=== PATIENT | female | born 1965 | race Caucasian/White ===

== ENCOUNTER 2017-09-06 07:38 | Inpatient (IN) | payer BC ==
[~2017-09-06] VITALS: Ht 162.6 cm; Wt 68.0 kg
[2017-09-06 07:42] VITALS: BP_SYST 154
[2017-09-06 08:33] LABS: BILIRUBIN,URINE NEGATIVE (NEGATIVE); BLOOD, URINE 3+ (NEGATIVE); CLARITY/URINE HAZY (CLEAR); COLOR,URINE YELLOW (YELLOW); GLUCOSE,URINE NEGATIVE (NEGATIVE); KETONES,URINE TRACE (NEGATIVE); LEUKOCYTE ESTERASE ,URINE TRACE (NEGATIVE); NITRITE, URINE NEGATIVE (NEGATIVE); PROTEIN URINE NEGATIVE (NEGATIVE)
[2017-09-06 08:45] LABS: BACTERIA,URINE MODERATE /HPF (None Seen)
[2017-09-06 08:49] LABS: BASOPHILS # (AUTO) 0.1 K/uL (0.0-0.2); BASOPHILS % (AUTO) 0.9 % (0.0-2.0); EOSINOPHILS # (AUTO) 0.1 K/uL (0.0-0.4); EOSINOPHILS % (AUTO) 0.8 % (0.0-4.0); HEMATOCRIT 38.7 % (36-48); LYMPHOCYTES % (AUTO) 13.7 % (20.5-51.5); MEAN CORPUSCULAR HEMOGLOBIN 30 pg (27-31); MEAN CORPUSCULAR HGB CONC 34 % (32-36); MEAN CORPUSCULAR VOLUME 90 fL (79.0-98.0); MONOCYTES # (AUTO) 0.5 K/uL (0.0-1.0); NEUTROPHILS # (AUTO) 5.5 K/uL (1.8-7.7); NEUTROPHILS % (AUTO) 77.6 % (40.0-70.0); PLATELET COUNT (AUTO) 172 K/uL (130-430); RED BLOOD CELL COUNT(AUTO) 4.29 MIL/uL (4.2-6.2); RED CELL DISTRIBUTION WIDTH 12.1 % (9.0-15.0); WHITE BLOOD COUNT (AUTO) 7.2 K/uL (4.8-10.8)
[2017-09-06 09:01] LABS: CALCIUM 9.7 mg/dL (8.4-11.0); CREATININE 0.78 mg/dL (0.55-1.30); POTASSIUM 3.7 mmol/L (3.5-5.1)
[2017-09-06] MEDS ORDERED: NACL 0.9% 1,000 ML IV ONE (09:01)
[2017-09-06 09:06] LABS: ALBUMIN 3.4 g/dL (3.4-4.8); TOTAL BILIRUBIN 0.7 mg/dL (0.0-1.0)
[2017-09-06] MEDS ORDERED: LIP10 PO (09:20)
[2017-09-06] MEDS ORDERED: metroNIDAZOLE 500 mg/NS 100 ML IV ONE ×2 (09:45→18:39)
[2017-09-06] MEDS ORDERED: KETOROLAC TROMETHAMINE 30 MG VIAL IVP ONE ×3 (10:15→21:45)
[2017-09-06] MEDS ORDERED: ONDANSETRON HCL 4 MG/2 ML VIAL IVP ONE ×3 (10:15→21:45)
[2017-09-06 10:52] VITALS: BP_SYST 144
[2017-09-06 12:26] LABS: INR 1.1 (0.8-1.2); PROTHROMBIN TIME 11.2 SECS (9.5-12.5)
[2017-09-06 13:00] VITALS: BP_SYST 127
[2017-09-06] MEDS ORDERED: ROCURONIUM BROMIDE 10 MG/ML (ZEMURON) IV ONE (16:58)
[2017-09-06] MEDS ORDERED: PROPOFOL 200MG/ 20ML VIAL (DIPRIVAN) IV ONE (16:58)
[2017-09-06] MEDS ORDERED: fentaNYL CITRATE/PF 100 MCG/2 ML AMP IVP ONE (16:58)
[2017-09-06] MEDS ORDERED: NS IRRIG SOLN 1000 ML IR ONE (16:58)
[2017-09-06] MEDS ORDERED: SEVOFLURANE 15 MIN GAS INH ONE (16:58)
[2017-09-06] MEDS ORDERED: PIPERACILLIN/TAZOBACTAM 3.375 GM/VIAL (ZOSYN) IV ONE ×2 (16:58→18:39)
[2017-09-06] MEDS ORDERED: MIDAZOLAM HCL 5 MG/ML VIAL (VERSED) IV ONE (16:58)
[2017-09-06] MEDS ORDERED: LR 1,000 ML IV.SOLN IV ONE (16:58)
[2017-09-06] MEDS ORDERED: LR 1,000 ML IV SCH (17:19)
[2017-09-06 17:26] VITALS: BP_SYST 127
[2017-09-06] MEDS ORDERED: KETOROLAC TROMETHAMINE 30 MG VIAL IVP PRN (17:30)
[2017-09-06] MEDS ORDERED: MEPERIDINE HCL/PF 25 MG/ML DISP.SYRIN IVP PRN ×2 (17:30)
[2017-09-06] MEDS ORDERED: ONDANSETRON HCL 4 MG/2 ML VIAL IVP PRN (17:30)
[2017-09-06] MEDS ORDERED: MEPERIDINE HCL/PF 25 MG/ML DISP.SYRIN ONE (19:44)
[2017-09-06] MEDS ORDERED: CIPROFLOXACIN LACT 400 MG/D5W 200 ML IV SCH (21:00)
[2017-09-06 21:15] VITALS: BP_SYST 130
[2017-09-06] MEDS ORDERED: CIPROFLOXACIN LACT 400 MG/D5W 200 ML IV ONE (21:15)
[2017-09-06] MEDS: LR 1,000 ML IV SCH (22:49)
[2017-09-06] MEDS ORDERED: HYDROmorphone 2 MG/ML VIAL IVP PRN ×2 (23:45)
[2017-09-07] VITALS (7 sets, daily range): BP systolic 114–126
[2017-09-07] MEDS ORDERED: BISACODYL 10 MG/SUPPOSITORY RC PRN (00:15)
[2017-09-07] MEDS: KETOROLAC TROMETHAMINE 30 MG VIAL IVP SCH ×4 (05:14→23:57)
[2017-09-07 07:12] LABS: BASOPHILS % (AUTO) 0.1 % (0.0-2.0); HEMATOCRIT 37.7 % (36-48); HEMOGLOBIN 12.7 g/dL (12.0-16.0); LYMPHOCYTES # (AUTO) 0.5 K/uL (1.0-5.5); MEAN CORPUSCULAR HEMOGLOBIN 31 pg (27-31); MEAN CORPUSCULAR HGB CONC 34 % (32-36); MEAN CORPUSCULAR VOLUME 91 fL (79.0-98.0); MONOCYTES # (AUTO) 0.4 K/uL (0.0-1.0); MONOCYTES % (AUTO) 3.4 % (1.7-9.3); NEUTROPHILS # (AUTO) 11.4 K/uL (1.8-7.7); PLATELET COUNT (AUTO) 197 K/uL (130-430); RED BLOOD CELL COUNT(AUTO) 4.14 MIL/uL (4.2-6.2); RED CELL DISTRIBUTION WIDTH 11.9 % (9.0-15.0); WHITE BLOOD COUNT (AUTO) 12.3 K/uL (4.8-10.8)
[2017-09-07 07:48] LABS: ALBUMIN 3.5 g/dL (3.4-4.8); CALCIUM 9.7 mg/dL (8.4-11.0); CREATININE 0.8 mg/dL (0.55-1.30); POTASSIUM 3.9 mmol/L (3.5-5.1); TOTAL BILIRUBIN 0.8 mg/dL (0.0-1.0)
[2017-09-07] MEDS: LR 1,000 ML IV SCH ×2 (08:14→18:09)
[2017-09-07] MEDS: PIPERACILLIN/TAZO 3.375/DEX-IS 50 ML IV SCH ×3 (11:28→23:58)
[2017-09-07] MEDS: ONDANSETRON HCL 4 MG/2 ML VIAL IVP PRN ×3 (11:34→18:10)
[2017-09-07 11:45] LABS: NEUTROPHILS % (AUTO) 92.5 % (40.0-70.0)
[2017-09-07] MEDS: metroNIDAZOLE 500 mg/NS 100 ML IV SCH ×2 (14:39→21:18)
[2017-09-08 00:24] VITALS: BP_SYST 129
[2017-09-08 04:37] VITALS: BP_SYST 117
[2017-09-08] MEDS: LR 1,000 ML IV SCH ×3 (04:55→23:13)
[2017-09-08] MEDS: PIPERACILLIN/TAZO 3.375/DEX-IS 50 ML IV SCH ×4 (05:56→23:12)
[2017-09-08] MEDS: KETOROLAC TROMETHAMINE 30 MG VIAL IVP SCH ×4 (05:57→23:12)
[2017-09-08] MEDS: metroNIDAZOLE 500 mg/NS 100 ML IV SCH ×3 (05:57→22:22)
[2017-09-08 07:19] LABS: BASOPHILS % (AUTO) 0.3 % (0.0-2.0); EOSINOPHILS % (AUTO) 0.2 % (0.0-4.0); HEMATOCRIT 35.5 % (36-48); HEMOGLOBIN 12.1 g/dL (12.0-16.0); LYMPHOCYTES # (AUTO) 1.5 K/uL (1.0-5.5); LYMPHOCYTES % (AUTO) 12.9 % (20.5-51.5); MEAN CORPUSCULAR HEMOGLOBIN 31 pg (27-31); MEAN CORPUSCULAR HGB CONC 34 % (32-36); MEAN CORPUSCULAR VOLUME 92 fL (79.0-98.0); MONOCYTES # (AUTO) 0.6 K/uL (0.0-1.0); MONOCYTES % (AUTO) 5.4 % (1.7-9.3); NEUTROPHILS # (AUTO) 9.5 K/uL (1.8-7.7); PLATELET COUNT (AUTO) 192 K/uL (130-430); RED BLOOD CELL COUNT(AUTO) 3.86 MIL/uL (4.2-6.2); RED CELL DISTRIBUTION WIDTH 11.9 % (9.0-15.0); WHITE BLOOD COUNT (AUTO) 11.6 K/uL (4.8-10.8)
[2017-09-08 07:35] VITALS: BP_SYST 125
[2017-09-08 08:06] LABS: ALBUMIN 3.3 g/dL (3.4-4.8); CALCIUM 9.3 mg/dL (8.4-11.0); CREATININE 0.72 mg/dL (0.55-1.30); POTASSIUM 3.8 mmol/L (3.5-5.1); TOTAL BILIRUBIN 0.7 mg/dL (0.0-1.0)
[2017-09-08 10:48] LABS: NEUTROPHILS % (AUTO) 81.2 % (40.0-70.0)
[2017-09-08 11:31] VITALS: BP_SYST 134
[2017-09-08] MEDS ORDERED: LORazepam 2 MG/ML VIAL IVP PRN (11:45)
[2017-09-08] MEDS ORDERED: ENOXAPARIN SODIUM 40 MG/0.4 ML SYRINGE SUBCUT ONE (13:45)
[2017-09-08 15:23] VITALS: BP_SYST 119
[2017-09-08 19:57] VITALS: BP_SYST 121
[2017-09-09 00:26] VITALS: BP_SYST 129
[2017-09-09 04:37] VITALS: BP_SYST 121
[2017-09-09] MEDS: metroNIDAZOLE 500 mg/NS 100 ML IV SCH (05:06)
[2017-09-09] MEDS: PIPERACILLIN/TAZO 3.375/DEX-IS 50 ML IV SCH ×2 (05:07→12:19)
[2017-09-09] MEDS: KETOROLAC TROMETHAMINE 30 MG VIAL IVP SCH ×2 (05:07→12:17)
[2017-09-09 07:05] LABS: BASOPHILS # (AUTO) 0.1 K/uL (0.0-0.2); BASOPHILS % (AUTO) 0.7 % (0.0-2.0); EOSINOPHILS # (AUTO) 0.1 K/uL (0.0-0.4); EOSINOPHILS % (AUTO) 1.2 % (0.0-4.0); HEMATOCRIT 31.9 % (36-48); HEMOGLOBIN 10.7 g/dL (12.0-16.0); LYMPHOCYTES # (AUTO) 1.3 K/uL (1.0-5.5); LYMPHOCYTES % (AUTO) 14.9 % (20.5-51.5); MEAN CORPUSCULAR HEMOGLOBIN 31 pg (27-31); MEAN CORPUSCULAR HGB CONC 34 % (32-36); MEAN CORPUSCULAR VOLUME 91 fL (79.0-98.0); MONOCYTES # (AUTO) 0.6 K/uL (0.0-1.0); MONOCYTES % (AUTO) 6.6 % (1.7-9.3); NEUTROPHILS % (AUTO) 76.6 % (40.0-70.0); PLATELET COUNT (AUTO) 188 K/uL (130-430); RED BLOOD CELL COUNT(AUTO) 3.51 MIL/uL (4.2-6.2); RED CELL DISTRIBUTION WIDTH 12.1 % (9.0-15.0); WHITE BLOOD COUNT (AUTO) 9.1 K/uL (4.8-10.8)
[2017-09-09 07:35] VITALS: BP_SYST 124
[2017-09-09] MEDS: LR 1,000 ML IV SCH (08:40)
[2017-09-09] MEDS ORDERED: ENOXAPARIN SODIUM 40 MG/0.4 ML SYRINGE SUBCUT SCH (09:00)
[2017-09-09 12:51] VITALS: BP_SYST 134
[2017-09-09 13:13] VITALS: BP_SYST 134
== END 2017-09-09 14:26 | disposition home or self-care (01) | DRG 330 ==
LOC: SED 07:38 → SMU 10:27
PROVIDERS: ADMIT Specialist; ATTEND Specialist
PROC: 0WQF0ZZ Repair Abdominal Wall, Open Approach (ICD-10-PCS; 2017-09-06 15:15)
PROC: 0DTH0ZZ Resection of Cecum, Open Approach (ICD-10-PCS; principal; 2017-09-08)
DX: K63.89 Other specified diseases of intestine (principal); N30.01 Acute cystitis with hematuria; E78.5 Hyperlipidemia, unspecified; K42.9 Umbilical hernia without obstruction or gangrene; Z88.2 Allergy status to sulfonamides; Z88.8 Allergy status to other drugs, medicaments and biological substances; Z90.710 Acquired absence of both cervix and uterus; Z88.1 Allergy status to other antibiotic agents; Z85.3 Personal history of malignant neoplasm of breast; K57.90 Diverticulosis of intestine, part unspecified, without perforation or abscess without bleeding
CPT/HCPCS: 36415; 71010; 80053; 81000-TC; 83605; 83690-TC; 85025; 85610-TC; 87040-TC; 87081; 88305; 88307; 93005; 94010; 96361; 96365; 96375; 99285; C1727; J0744; J1170; J1650; J1885; J2060; J2175; J2250; J2405; J2543; J2704; J3010; J3490; J7030; J7042; J7120

== ENCOUNTER 2018-01-08 08:06 | Day surgery (SDC) | payer BC ==
[~2018-01-08] VITALS: Ht 162.6 cm; Wt 66.2 kg
[~2018-01-08 08:06] MED LIST: LIP10 PO
[2018-01-08] MEDS ORDERED: CLINDAMYCIN 600 mg/50mL D5W 50 ML IV ONE (10:56)
[2018-01-08] MEDS ORDERED: fentaNYL CITRATE/PF 100 MCG/2 ML AMP IVP PRN ×2 (12:30)
[2018-01-08] MEDS ORDERED: ONDANSETRON HCL 4 MG/2 ML VIAL IVP PRN ×2 (12:30→13:30)
[2018-01-08] MEDS ORDERED: MEPERIDINE HCL/PF 100 MG/ML AMP IM ONE (13:15)
[2018-01-08] MEDS ORDERED: NS IRRIG SOLN 1000 ML IR ONE (13:15)
[2018-01-08] MEDS ORDERED: ROCURONIUM BROMIDE 10 MG/ML (ZEMURON) IV ONE (13:15)
[2018-01-08] MEDS ORDERED: GLYCOPYRROLATE 0.2 MG/ML VIAL IJ ONE (13:15)
[2018-01-08] MEDS ORDERED: LR 1,000 ML IV.SOLN IV ONE (13:15)
[2018-01-08] MEDS ORDERED: EPINEPHrine 1 MG/ML AMP IV ONE (13:15)
[2018-01-08] MEDS ORDERED: SEVOFLURANE 15 MIN GAS INH ONE (13:15)
[2018-01-08] MEDS ORDERED: MIDAZOLAM HCL 5 MG/ML VIAL (VERSED) IV ONE (13:15)
[2018-01-08] MEDS ORDERED: PROPOFOL 200MG/ 20ML VIAL (DIPRIVAN) IV ONE (13:15)
[2018-01-08] MEDS ORDERED: BUPIVACAINE /PF 0.5% 30 ML VIAL INJ ONE (13:15)
[2018-01-08] MEDS ORDERED: NS 1000 ML BAG IV ONE (13:15)
[2018-01-08] MEDS ORDERED: ONDANSETRON HCL 4 MG/2 ML VIAL IVP ONE (13:15)
[2018-01-08] MEDS ORDERED: DEXAMETHASONE SOD PHOSPHATE 4 MG/ML VIAL IVP ONE (13:15)
[2018-01-08] MEDS ORDERED: OXYCODONE/ACETAMINOPHEN 5-325 TABLET PO PRN ×2 (13:30)
[2018-01-08] MEDS ORDERED: OXYCODONE/ACETAMINOPHEN 5-325 TABLET ONE (14:14)
[2018-01-08] MEDS ORDERED: traMADol HCL HCL 50 MG TABLET (ULTRAM) ONE (14:29)
[2018-01-08] MEDS ORDERED: traMADol HCL HCL 50 MG TABLET (ULTRAM) PO ONE (14:30)
[2018-01-08 15:22] VITALS: BP_SYST 120
== END 2018-01-08 16:35 | disposition home or self-care (01) ==
LOC: SMU 08:06 → SDS 08:06
PROVIDERS: ATTEND Specialist
DX: N80.1 Endometriosis of ovary (principal); E78.00 Pure hypercholesterolemia, unspecified; Z88.8 Allergy status to other drugs, medicaments and biological substances; Z79.899 Other long term (current) drug therapy; Z98.890 Other specified postprocedural states; Z85.038 Personal history of other malignant neoplasm of large intestine
CPT/HCPCS: 58662; 88305; 93005; C1727; J0171; J1100; J2175; J2250; J2405; J2704; J3490 ×3; J7030; J7120; E0190

== ENCOUNTER 2018-11-26 05:55 | Inpatient (IN) | payer BC ==
[~2018-11-26] VITALS: Ht 162.6 cm; Wt 68.0 kg
[2018-11-26] MEDS ORDERED: NS 1000 ML IV.SOLN IV ONE (07:10)
[2018-11-26] MEDS ORDERED: ROPIVACAINE 0.2% (NAROPIN) PF SOLUTION 100 ML BOTTLE EP ONE (07:10)
[2018-11-26] MEDS ORDERED: ROPIVACAINE HCL/PF 5 MG/ML 0.5% 30 ML VIAL INJ ONE (07:10)
[2018-11-26] MEDS ORDERED: SEVOFLURANE 15 MIN GAS INH ONE (07:10)
[2018-11-26] MEDS ORDERED: BUPIVACAINE /PF 0.25% 30 ML VIAL INJ ONE (07:10)
[2018-11-26] MEDS ORDERED: MIDAZOLAM HCL 5 MG/5 ML VIAL IVP ONE (07:10)
[2018-11-26] MEDS ORDERED: PROPOFOL 200MG/ 20ML VIAL (DIPRIVAN) IV ONE (07:10)
[2018-11-26] MEDS ORDERED: CEFAZOLIN 1 GM IVPB PREMIX 50 ML IV ONE (07:10)
[2018-11-26] MEDS ORDERED: ONDANSETRON HCL 4 MG/2 ML VIAL IVP ONE (07:10)
[2018-11-26] MEDS ORDERED: ROCURONIUM BROMIDE 10 MG/ML (ZEMURON) IV ONE (07:10)
[2018-11-26] MEDS ORDERED: fentaNYL CITRATE 250 MCG/5 ML AMP IV ONE (07:10)
[2018-11-26] MEDS ORDERED: CLINDAMYCIN 2% VAGINAL CREAM VG ONE (07:10)
[2018-11-26] MEDS ORDERED: LR 1,000 ML IV.SOLN IV ONE (07:10)
[2018-11-26] MEDS ORDERED: NS IRRIG SOLN 1000 ML IR ONE (07:10)
[2018-11-26] MEDS ORDERED: DEXTROSE 50% JECT 50 ML DISP.SYRIN IVP ONE (07:10)
[2018-11-26 07:17] LABS: POTASSIUM 3.9 mmol/L (3.5-5.1)
[2018-11-26 07:18] LABS: CALCIUM 8.7 mg/dL (8.4-11.0); CREATININE 0.72 mg/dL (0.55-1.30)
[2018-11-26 07:20] LABS: ALBUMIN 3.4 g/dL (3.4-4.8); TOTAL BILIRUBIN 0.5 mg/dL (0.0-1.0)
[2018-11-26] MEDS ORDERED: POLYMYXIN 500,000/BACIT.10,000 UNITS in NS IRR 1 L IR ONE ×2 (07:21→08:45)
[2018-11-26 07:32] LABS: PROTHROMBIN TIME 9.7 SECS (9.5-12.5)
[2018-11-26 07:33] LABS: INR 0.9 (0.8-1.2)
[2018-11-26] MEDS ORDERED: LR 1,000 ML IV SCH (09:08)
[2018-11-26] MEDS ORDERED: HYDROmorphone 1 MG INJ. 1 MG/ML AMPUL IVP PRN ×2 (09:15)
[2018-11-26] MEDS ORDERED: METOCLOPRAMIDE HCL 10 MG/2 ML VIAL IVP PRN (09:15)
[2018-11-26] MEDS ORDERED: HYDROmorphone 2 MG/ML VIAL IVP PRN (09:15)
[2018-11-26 12:03] VITALS: BP_SYST 137
[2018-11-26 12:04] VITALS: BP_SYST 118
--- NOTE | 2018-11-26 12:05 | NUR ---
RN NOTES:RECEIVED PATIENT FROM PACU DROWSY BUT EASILY AROUSABLE, RESPONSIVE AND NOT IN DISTRESS. NOT IN PAIN. NO ACTIVE BLEEDING NOTED BUT PATIENT HAS 2 SARAH DRAINS, ONE ON EACH SIDE OF THE ABDOMEN. ON Q PUMP, PATIENT TOLERATING PAIN WELL. INCISION COVERED WITH DRESSING WITH ABDOMINAL BINDER . CAMPBELL CATHETER IN PLACED, DRAINING WELL. VITAL SIGNS TAKEN. KEPT COMFORTABLE. STABLE. FAMILY AT BEDSIDE.
--- NOTE | 2018-11-26 12:29 | NUR ---
received report from transmitter engineer in charge. pt is drowsy but arousable to voice, noted pt was sharking her body and head, pt was already covered with blanket. per report md is already aware of the shaking. no bleeding noted from dressing, 2x deb intact with very little drainage. qpump connected. family at bedside. call light in reach. will cont to monitor.
[2018-11-26] MEDS ORDERED: D5/0.45 NS 1,000 ML IV SCH (13:26)
[2018-11-26] MEDS: ONDANSETRON HCL 4 MG/2 ML VIAL IVP PRN ×2 (13:55→19:24)
[2018-11-26] MEDS: KETOROLAC TROMETHAMINE 30 MG VIAL IVP PRN ×2 (13:58→21:48)
[2018-11-26] MEDS ORDERED: ACETAMINOPHEN 325 MG TABLET PO PRN (14:45)
--- NOTE | 2018-11-26 15:00 | NUR ---
pt in bed, at bedside. pt stated her pain in better this time. will little nausea now. call light in reach. will cont to monitor.
[2018-11-26] MEDS: CEFAZOLIN 1 GM IVPB PREMIX 50 ML IV SCH ×2 (16:28→23:48)
[2018-11-26] MEDS: LR 1,000 ML IV SCH ×2 (16:29→22:40)
--- NOTE | 2018-11-26 16:49 | NUR ---
LEFT AND RIGHT SARAH DRAINED 20 AND 60 CC OF LIGHT RED DRAINAGE RESPECTIVELY.
--- NOTE | 2018-11-26 17:11 | NUR ---
PT OOB WITH ASSIST STOOD ON SIDE OF BED FOR 2-3 MIN, C/O OF NAUSEA. ASSISTED BACK TO BED. AT BEDSIDE. PT TOLERATED WELL.
[2018-11-26 17:24] VITALS: BP_SYST 124
[2018-11-26] MEDS: KETOROLAC TROMETHAMINE 30 MG VIAL IVP SCH (17:48)
--- NOTE | 2018-11-26 17:51 | NUR ---
PT GIVEN SCHEDULED TORADOL. PT C/O OF PAIN 05/27. WILL CONT TO MONITOR. CALLED [facility] FOR DINNER TRAY OF CLEAR LIQUID.
--- NOTE | 2018-11-26 18:34 | NUR ---
CLOSING NOTE, PT HAS BEEN STABLE. C/O OF PAIN EVEN WITH THE QPUMP. GIVEN TORADOL 2X THIS SHIFT. PT OOB X1 THIS SHIFT. IV FLUIDS INFUSING WELL. IV ABX GIVEN. WILL ENDORSE TO NIGHT RN.
[2018-11-26 19:00] VITALS: BP_SYST 120
[2018-11-26 20:00] VITALS: BP_SYST 120
[2018-11-26] MEDS ORDERED: SENNOSIDES/DOCUSATE SODIUM 1 TAB TABLET(SENOKOT-S) PO PRN (21:00)
[2018-11-26] MEDS: SIMETHICONE 80 MG TAB.CHEW PO PRN (23:01)
--- NOTE | 2018-11-26 23:13 | NUR ---
paged paged for Dr Galan, dialed . s/w Tawnya.
[2018-11-26 23:46] VITALS: BP_SYST 123
[2018-11-27] MEDS: KETOROLAC TROMETHAMINE 30 MG VIAL IVP SCH ×4 (00:27→18:32)
[2018-11-27] MEDS: LR 1,000 ML IV SCH ×3 (00:31→16:22)
[2018-11-27] MEDS: TEMAZEPAM 15 MG CAPSULE PO PRN ×2 (00:33→21:09)
[2018-11-27] MEDS: KETOROLAC TROMETHAMINE 30 MG VIAL IVP PRN ×2 (04:02→10:45)
--- NOTE | 2018-11-27 06:58 | NUR ---
ATTENDING MD DR Jaqui MAYA WAS CALLED, RE: PT REMOVED VAGINAL PACKING THAT CAUSE BLEEDING. SPOKE TO MEY
[2018-11-27 07:31] LABS: HEMOGLOBIN 11.1 g/dL (12.0-16.0); RED BLOOD CELL COUNT(AUTO) 3.69 MIL/uL (4.2-6.2); WHITE BLOOD COUNT (AUTO) 9.2 K/uL (4.8-10.8)
[2018-11-27 07:32] LABS: BASOPHILS % (AUTO) 0.5 % (0.0-2.0); EOSINOPHILS # (AUTO) 0.1 K/uL (0.0-0.4); EOSINOPHILS % (AUTO) 0.9 % (0.0-4.0); HEMATOCRIT 33.4 % (36-48); LYMPHOCYTES # (AUTO) 1.5 K/uL (1.0-5.5); LYMPHOCYTES % (AUTO) 15.8 % (20.5-51.5); MEAN CORPUSCULAR HEMOGLOBIN 30 pg (27-31); MEAN CORPUSCULAR HGB CONC 33 % (32-36); MEAN CORPUSCULAR VOLUME 91 fL (79.0-98.0); MONOCYTES # (AUTO) 0.8 K/uL (0.0-1.0); MONOCYTES % (AUTO) 8.4 % (1.7-9.3); NEUTROPHILS # (AUTO) 6.8 K/uL (1.8-7.7); NEUTROPHILS % (AUTO) 74.4 % (40.0-70.0); PLATELET COUNT (AUTO) 148 K/uL (130-430); RED CELL DISTRIBUTION WIDTH 12.4 % (9.0-15.0)
[2018-11-27 08:00] VITALS: BP_SYST 130
--- NOTE | 2018-11-27 08:00 | NUR ---
Opening Note Report received from Yaw TOVAR shift nurse. Patient is awake and alert. Abdominal incision is dry and intact, covered with surgical dressing and abdominal binder in place. Right and left SARAH drains are in place, draining sanguinous fluid. On q pump is running at 5ml. IV is on the left wrist 20g running LR @125. Lr cath was dc'd today at 0630. Patient voided 200ml already.
[2018-11-27 08:09] LABS: CALCIUM 8.7 mg/dL (8.4-11.0); POTASSIUM 3.8 mmol/L (3.5-5.1)
[2018-11-27 08:10] LABS: ALBUMIN 2.9 g/dL (3.4-4.8); CREATININE 0.69 mg/dL (0.55-1.30); TOTAL BILIRUBIN 0.7 mg/dL (0.0-1.0)
[2018-11-27] MEDS: ONDANSETRON HCL 4 MG/2 ML VIAL IVP PRN (08:48)
[2018-11-27] MEDS: traMADol HCL HCL 50 MG TABLET (ULTRAM) PO PRN ×2 (08:48→16:33)
--- NOTE | 2018-11-27 10:20 | NUR ---
Rounds Patient is resting in bed. Call light is within reach.
--- NOTE | 2018-11-27 11:13 | NUR ---
Nutrition Update Oleg Scale 17 noted. Pt admitted for stress incontinence (female) (male). Diet: clear liquid BMI: 25.7 kg/m2 RD to follow per nutrition care standards.
[2018-11-27 12:10] VITALS: BP_SYST 137
--- NOTE | 2018-11-27 12:30 | NUR ---
Rounds Checked abdominal site. Original surgical dressing is in place. Moderate amount of old dry drainage noted underneath the dressing.
[2018-11-27] MEDS: SIMETHICONE 80 MG TAB.CHEW PO PRN (12:39)
--- NOTE | 2018-11-27 15:40 | NUR ---
Spoke with MD Spoke with Dr. Rain who stated that he will come and see the patient if not discharged by Dr. Galan.
--- NOTE | 2018-11-27 15:50 | NUR ---
Spoke with MD Spoke with Dr. Galan who stated that he will come and see the patient.
--- NOTE | 2018-11-27 16:20 | NUR ---
Rounds Patient is resting in bed. Family is at the bedside. Call light is within reach.
[2018-11-27 16:46] VITALS: BP_SYST 133
--- NOTE | 2018-11-27 18:17 | NUR ---
Closing Note Patient is currently resting in bed. Abdominal dressing and binder are in place. Right and left SARAH drains are in place along with On Q pump running at 5ml. IV is on the left wrist 22g running LR@125. Call light is within reach and bed is in low position. Will endorse care to the oncoming nurse.
--- NOTE | 2018-11-27 19:30 | NUR ---
opening note Received patient AAOX4, she is resting supine in no sign of distress. She was medicated for pain approximately one hour ago and presently she reports she is comfortable. 22G IV to L hand has fluids infusing as ordered. Abdominal binder CDI. Two SARAH's are present, one on right and one on left. on-Q pump; 2 noted each at 5 ml/hr, patent. Bed is locked to lowest position, bed alarm on and instructed on use of call light. Will monitor.
[2018-11-27 19:40] VITALS: BP_SYST 141
--- NOTE | 2018-11-27 19:50 | NUR ---
Dr. Pruitt making rounds Dr. Pruitt is at the unit and went to see the patient.
--- NOTE | 2018-11-27 23:30 | NUR ---
Incentive spirometer Patient was educated on use of incentive spirometer. She demonstrated use and inspired 800ml. Patient declined PO pain medication and said she will wait for her scheduled IVP pain medication. No further needs. Will monitor.
[2018-11-28] VITALS (7 sets, daily range): BP systolic 120–161
[2018-11-28] MEDS: KETOROLAC TROMETHAMINE 30 MG VIAL IVP SCH ×4 (00:19→18:10)
--- NOTE | 2018-11-28 00:20 | NUR ---
NOTE Administered due pain medication. She reports pain is 7-8/10 and overall today more tolerable than yesterday. She ambulated to the restroom and returned to bed. Safety precautions in place and call light near.
[2018-11-28] MEDS: LR 1,000 ML IV SCH ×2 (00:21→12:30)
--- NOTE | 2018-11-28 06:10 | NUR ---
NOTE Administered due medication for pain; patient reports pain was 5-6/10. Emptied SARAH drains and document output; patient had no further needs.
--- NOTE | 2018-11-28 07:10 | NUR ---
CLOSING NOTE Patient is resting supine in comfortable position, in no sign of distress. She was medicated for pain approximately one hour ago and presently she reports she is comfortable. 22G IV to L hand has fluids infusing as ordered. Abdominal binder CDI. Two SARAH's are present, one on right and one on left. on-Q pump; 2 noted each at 5 ml/hr, patent. Bed is locked to lowest position, bed alarm on and instructed on use of call light. Roger endorse care to morning nurse.
[2018-11-28] MEDS: traMADol HCL HCL 50 MG TABLET (ULTRAM) PO PRN ×3 (09:26→21:32)
--- NOTE | 2018-11-28 10:50 | NUR ---
Called Spoke with Dr. Adama MD stated the he will see the patient at lunch time.
--- NOTE | 2018-11-28 12:30 | NUR ---
Rounds Patient is resting in bed. No signs of distress noted. Moderate amount of old drainage noted underneath the original surgical dressing.
--- NOTE | 2018-11-28 16:40 | NUR ---
Spoke with Spoke with Dr. Deleon to update him on the patient's status. stated that the patient's diet may be advanced slowly.
--- NOTE | 2018-11-28 18:50 | NUR ---
Closing Note Patient is resting in bed. No signs of acute distress noted. IV is on the left wrist running LR@tko. Right and left SARAH drains are in place. Original surgical dressing is in place. Abdominal binder is in place. Call light is within reach and bed is in low position. Will endorse care to the oncoming nurse.
--- NOTE | 2018-11-28 19:17 | NUR ---
OPENING NOTE Received patient awake, AOx4 resting in comfortable position. Presently reports pain is tolerable. VSS, nonlabored breathing with SpO2 95% room air. 22G IV to left wrist is TKO at 10 ml/hr. Abdominal binder CDI covering incision dressing, 2 SARAH's one on right and one on left, on-q-pumps are empty. Bed is locked to lowest position, bed alarm on, call light w/in reach, 2 side rails up. Updated board, will monitor.
--- NOTE | 2018-11-28 21:20 | NUR ---
Dr. Pruitt at nursing unit Dr. Pruitt at nursing station, evaluated patient and I was at bedside. He told the patient it looks like she will discharge tomorrow, she will follow-up with him at his office and the SARAH's will be removed.
--- NOTE | 2018-11-28 21:20 | NUR ---
On-Q-pumps removed Dr. Pruitt removed the On-Q-pumps. Tips were visualized and patent.Patient tolerated, no active bleeding noted.
[2018-11-28] MEDS: TEMAZEPAM 15 MG CAPSULE PO PRN (21:31)
[2018-11-29] MEDS: KETOROLAC TROMETHAMINE 30 MG VIAL IVP SCH ×3 (00:02→13:02)
--- NOTE | 2018-11-29 00:20 | NUR ---
Removed IV Patient was reported irritation to IV site. The saline flush was irritating and swelling was noted. The IV catheter was removed, tip was visualized intact. No active bleeding noted. Patient further added that she did not want another IV start. Instead she requested if her scheculed pain medication could be IM and I let her know that I would page Dr. Galan. Will follow up.
--- NOTE | 2018-11-29 03:30 | NUR ---
Note Patient called to report severe pain and she was medicated with Tramadol for severe pain as ordered. No further needs. Safety precautions in place and call light near. Will monitor.
[2018-11-29] MEDS: traMADol HCL HCL 50 MG TABLET (ULTRAM) PO PRN ×2 (03:32→10:10)
--- NOTE | 2018-11-29 04:45 | NUR ---
S/W spoke w/ Dr. Xi Galan regarding patient's request for IM pain medication. He provided an order for scheduled pain medication, I read back order and will enter order. Will follow up w/pharmacy.
[2018-11-29] MEDS ORDERED: KETOROLAC TROMETHAMINE 30 MG VIAL IM SCH (06:00)
--- NOTE | 2018-11-29 06:30 | NUR ---
NOTE Patient received scheduled pain medication, IM as ordered and tolerated. She was assisted to the restroom and back to bed. She sat on bedside a few minutes and worked on IS, which she inspired to 1400 ml. She returned to resting supine, bed alarm was set again. No further needs. Call light near.
--- NOTE | 2018-11-29 07:20 | NUR ---
closing note Endorsed report to bridgette Evans nurse. Patient was resting in comfortable position. Needs met throughout shift. Abdominal incision covered with dressing and abdominal binder in place, CDI. The two SARAH's were emptied. Safety precautions in place and call light w/in reach.
--- NOTE | 2018-11-29 07:40 | NUR ---
received report from david Terrell RN. patient is stable condition for now. aaox 4. lungs bilaterally clear. no iv access noted. vitals signs stable and documented. no pain at this time. yet. has abdominal dressing in placed no bleeding noted. with j p drain draining red bloody on it about rt side 10 and left side 5cc. and has abdominal binder on it. call lights within reach. at the bedside. instructed to call for any assistance.
--- NOTE | 2018-11-29 08:30 | NUR ---
tolerating full liquid diet. no nausea nor vomitting noted. assists on adls. continue to monitor patients status.
--- NOTE | 2018-11-29 09:20 | NUR ---
watching tv. verbalized wants to go to bathroom. assisted patient to the bathroom.
--- NOTE | 2018-11-29 10:12 | NUR ---
complained of abdominal pain. ultram 100 mg tablet given. made comfortable. instructed to used incentive spirometry
[2018-11-29 11:17] VITALS: BP_SYST 138
--- NOTE | 2018-11-29 13:04 | NUR ---
toradol 30 mg im given. made comfortable. dr quinteros came and discharge patient.
--- NOTE | 2018-11-29 13:16 | NUR ---
AWAITING FOR TO CALM DOWN THE PAIN. MADE COMFORTABLE.
[2018-11-29] MEDS ORDERED: TRAM100T34 PO ×2 (13:23→13:29)
[2018-11-29] MEDS ORDERED: TEMA30CA5 PO ×2 (13:25→13:30)
[2018-11-29] MEDS ORDERED: TRAM1TAB33 PO (13:28)
[2018-11-29 13:36] VITALS: BP_SYST 118
--- NOTE | 2018-11-29 14:25 | NUR ---
patient left in stable condition via wheelchair with and son. accompanied by Shantell Caputo. no iv access noted. [facility] ids was removed. discharge instruction given how to take care of the incision on the abdomen. follow up appointment with Dr Deleon and Dr. Galan. prescription given to the . all belongings sent to the patient.
== END 2018-11-29 14:25 | disposition home or self-care (01) | DRG 331 ==
LOC: SMU 05:55 → SDS 05:55 → SMU 12:41 → SDS 11-27 17:55 → SMU 11-27 18:00
PROVIDERS: ADMIT Specialist; ATTEND Specialist
PROC: 0WUF0JZ Supplement Abdominal Wall with Synthetic Substitute, Open Approach (ICD-10-PCS; principal; 2018-11-26 07:30)
PROC: 0JUC0JZ Supplement of Pelvic Region Subcutaneous Tissue and Fascia with Synthetic Substitute, Open Approach (ICD-10-PCS; 2018-11-29)
DX: K43.9 Ventral hernia without obstruction or gangrene (principal); N81.10 Cystocele, unspecified; N39.3 Stress incontinence (female) (male); N39.498 Other specified urinary incontinence; K43.2 Incisional hernia without obstruction or gangrene
CPT/HCPCS: 36415; 80053; 85025; 85610-TC; 85730-TC; 87081; 88302; 88305; 93005; 94010; C1771; J0690; J1885; J2250; J2405; J2704; J2795; J3010; J3490; J7030; J7120